=== PATIENT | male | born 1990 ===

== ENCOUNTER 2017-04-12 09:18 | Emergency (ER) | payer OTHER ==
--- NOTE | 2017-04-12 09:51 | UC ---
Abdominal Pain Male HPI - HPI Summary HPI Summary: Patient presents with an unremarkable past medical history. He presents today with 2 day onset complaints of left sided abdominal pain, that has been intermittent, and is worse with movement, and improves at rest. He states the symptoms began after he ate alot of food with friends over Hol. He describes the pain as sharp and non-radiating. He denies fever, chills, flank pain, hematuria, dysuria, or any penile discharge, testicular pain, or trauma, or bleeding. He states he is eating and drinking unchanged from baseline. - History of Current Complaint Chief Complaint: UCAbdominalPain Stated Complaint: STOMACH PAINS Time Seen by Provider: 04/12/17 09:22 Hx Obtained From: Patient Onset/Duration: Sudden Onset, Lasting Days Timing: Intermittent Episodes Lasting: Severity Initially: Moderate Severity Currently: Moderate Location: Discrete At: LLQ, Other - left lateral abdomen Character: Sharp Aggravating Factor(s): Movement Alleviating Factor(s): Rest Associated Signs And Symptoms: Positive: Negative - Risk Factors Testicular Torsion: Negative Cardiac Risk Factors: Negative - Allergies/Home Medications Allergies/Adverse Reactions: Allergies Allergy/AdvReac Type Severity Reaction Status Date / Time No Known Allergies Allergy Verified 04/12/17 09:27 Home Medications: Home Medications Acetaminophen [Acetaminophen Extra Stren] 1 tab PO Q8HR PRN 04/12/17 [History Confirmed 04/12/17] Bismuth Subsalicylate [Pepto Bismol] 1 tab PO BID PRN 04/12/17 [History Confirmed 04/12/17] PMH/Surg Hx/FS Hx/Imm Hx Previously Healthy: Yes - Surgical History Surgical History: None - Family History Known Family History: Positive: None - Social History Occupation: Student Lives: Alone Alcohol Use: Occasionally Substance Use Type: None Smoking Status (MU): Never Smoked Tobacco - Immunization History Most Recent Influenza Vaccination: 01/2017 Review of Systems Constitutional: Negative Skin: Negative Eyes: Negative ENT: Negative Respiratory: Negative Cardiovascular: Negative Gastrointestinal: Abdominal Pain Genitourinary: Negative Motor: Negative Neurovascular: Negative Musculoskeletal: Negative Neurological: Negative Psychological: Negative Is Patient Immunocompromised?: No All Other Systems Reviewed And Are Negative: Yes Physical Exam Triage Information Reviewed: Yes Appearance: Well-Appearing Vital Signs: Initial Vital Signs Temp 97.6 F 04/12/17 09:21 Pulse 117 04/12/17 09:21 Resp 16 04/12/17 09:21 BP 165/73 04/12/17 09:21 Pulse Ox 99 04/12/17 09:21 Vital Signs Reviewed: Yes Eye Exam: Normal ENT Exam: Normal ENT: Positive: Normal ENT inspection, Hearing grossly normal, Pharynx normal Neck exam: Normal Neck: Positive: Supple Respiratory: Positive: Lungs clear, Normal breath sounds, No respiratory distress Cardiovascular: Positive: RRR, No Murmur, Pulses Normal Abdominal Exam: Normal Skin Exam: Normal Abd Pain Male Course/Dx - Course Course Of Treatment: Patient prresent with an unremarkabel past medical history who presents today with 2 day onset left sided intermittent abdomen pain, and is worse with movement and resolves at rest, and could not be reproduced today on exam. He declines any testicular pain, trauma, penile discharge, or hematura , and I do not suspect any testicular torson based on the patient history. UA wa normal, and CT abdomen and pelvis was obtained and read by the radiologits and reviewed with the patient as inflammatory changes noted left upper quadrant in the mesentery with thickening of the lateral conal fascia. Differential diagnosis included pancreatitis, focal dicerticultis, or omental infarct. Clinical correlation is suggested. I then recommend that the patient go to the ER for further evaluation as I could not obtain any blood work in a timely manner here and he decided to drive self to ER and declined ambulance transport. I called the ER and gave report to Dr. Sultana who acknoweldges the patient is coming. At the time of discharge the patient had a nontoxic appearance, with VS recorded as BP 165/73, T-97.6, P-117, R-16, O2sat 99% on RA , noted to be abnormal due to current illness. He was discharge per his request to drive self immedicatly to the ER. - Differential Dx/Clinical Impression Differential Diagnosis/HQI/PQRI: Diverticulitis, Ischemic Bowel, Pancreatitis Provider Diagnoses: abdominal pain. DDX;diveritcultis. pancreatitis. ischemic bowel Discharge - Discharge Plan Condition: Stable Disposition: OTHER Discharge Disposition Comment: go immediatly to the ER Patient Education Materials: Acute Abdominal Pain (ED) Referrals: No Primary Care Phys,NOPCP [Primary Care Provider] - Additional Instructions: Patient declined ambulance transport to ED, he was told to go directly to the ER.
--- NOTE | 2017-04-12 10:38 | RAD ---
Indication: Left-sided flank pain. CT of the abdomen and pelvis was performed without oral or IV contrast administration. Coronal and sagittal reconstructed images were obtained. Coronal and sagittal reconstructed images were obtained. The lung bases demonstrate no pleural fluid, nodules or masses. Heart is of normal size without evidence of pericardial effusion. Liver is normal in size. It is diffusely decreased in density consistent with hepatic steatosis. Gallbladder demonstrates no calcified gallstones. No pericholecystic fluid or wall thickening is identified. The pancreas demonstrates no mass or pancreatic duct dilatation. The spleen is normal in size. No adrenal masses are noted. The kidneys demonstrates no evidence of hydronephrosis around either kidney. There is increased edema in the left mesentery inferior to the spleen. This is consistent with an inflammatory change. I cannot tell whether this is related to the pancreas or colon. Possibility of omental infarct should also be considered. There is thickening of the lateral conal fossa. The spleen is normal in size. No retroperitoneal lymphadenopathy is noted. The aorta and inferior vena cava are unremarkable. CT of the pelvis demonstrates diverticulosis without definite evidence of diverticulitis. Urinary bladder is unremarkable. No free fluid is noted in the pelvis. Small inguinal lymph nodes are noted. IMPRESSION: Inflammatory changes noted left upper quadrant in the mesentery with thickening of the lateral conal fascia. Differential diagnosis includes pancreatitis, focal diverticulitis or omental infarct. Clinical correlation is suggested.
== END 2017-04-12 11:05 ==
LOC: UCEAST 09:18
DX: R10.32 Left lower quadrant pain (principal)
CPT/HCPCS: 74176; 81003; 99202; G0463

== ENCOUNTER 2017-04-12 11:39 | Emergency (ER) | payer OTHER ==
[2017-04-12] MEDS ORDERED: NS 0.9% 1000 ML* 1,000 ML IV ONE (12:34)
--- NOTE | 2017-04-12 13:03 | ED ---
Abdominal Pain/Male - HPI Summary HPI Summary: Patient is an otherwise healthy 27yo M who presents to the ED from with CC of LUQ/LLQ pain which began 2 days ago. He notes to eating a large meal with friends on Sunday and felt uncomfortable after. Sunday, he notes to onset of pain which is stabbing and aching in nature, is intermittent, not worse or better after eating. Denies N/V/C/D. Denies fevers, sweats or chills. Pain has improved since yesterday and he is asymptomatic on arrival. Taken Tylenol with relief of pain yesterday. Denies any testicular pain or excessive alcohol use. Denies history of colitis or diverticulitis. Denies melena. Denies any urinary symptoms. Denies any introduction of new food to the diet. Denies flank pain. No history of abdominal surgeries. Partner at bedside. Patient declines excessive treatment, and would only like labs obtained while in the ED. - History of Current Complaint Chief Complaint: EDAbdPain Stated Complaint: ABD PAIN Time Seen by Provider: 04/12/17 12:25 Hx Obtained From: Patient Onset/Duration: Gradual Onset Timing: Constant Severity Initially: Moderate Severity Currently: Moderate Pain Intensity: 3 Pain Scale Used: 0-10 Numeric Location: Discrete At: LUQ, Discrete At: LLQ Radiates: No Character: Cramping Aggravating Factor(s): Nothing Alleviating Factor(s): Nothing Associated Signs And Symptoms: Positive: Negative - Risk Factors Testicular Torsion: Negative Cardiac Risk Factors: Negative - Allergies/Home Medications Allergies/Adverse Reactions: Allergies Allergy/AdvReac Type Severity Reaction Status Date / Time No Known Allergies Allergy Verified 04/12/17 09:27 PMH/Surg Hx/FS Hx/Imm Hx Previously Healthy: Yes - Immunization History Hx Pertussis Vaccination: No Immunizations Up to Date: Unable to Obtain/Confirm Infectious Disease History: No Infectious Disease History: Reports: Traveled Outside the [place] in Last 30 Days - [place] - Family History Known Family History: Positive: None - Social History Occupation: Employed Full-time Lives: With Family Alcohol Use: Occasionally Hx Substance Use: No Substance Use Type: Reports: None Hx Tobacco Use: No Smoking Status (MU): Never Smoked Tobacco Do You Chew or Dip Tobacco: No Review of Systems Constitutional: Negative Negative: Fever, Chills, Fatigue Eyes: Negative Cardiovascular: Negative Genitourinary: Negative Positive: no symptoms reported, see HPI Musculoskeletal: Negative Skin: Negative Psychological: Normal All Other Systems Reviewed And Are Negative: Yes Physical Exam Triage Information Reviewed: Yes Vital Signs On Initial Exam: Initial Vitals Temp Pulse Resp BP Pulse Ox 98.5 F 103 20 165/88 99 04/12/17 11:40 04/12/17 11:40 04/12/17 11:40 04/12/17 11:40 04/12/17 11:40 Vital Signs Reviewed: Yes Appearance: Positive: Well-Appearing, Well-Nourished Skin: Positive: Warm, Skin Color Reflects Adequate Perfusion Head/Face: Positive: Normal Head/Face Inspection Eyes: Positive: EOMI, DARCIE, Conjunctiva Clear Neck: Positive: Supple, Nontender, No Lymphadenopathy Respiratory/Lung Sounds: Positive: Clear to Auscultation, Breath Sounds Present Cardiovascular: Positive: Normal, RRR, Pulses are Symmetrical in both Upper and Lower Extremities Abdomen Description: Positive: Other: - no tenderness to the LLQ or LUQ on deep palpation Bowel Sounds: Positive: Present Musculoskeletal: Positive: Normal, Strength/ROM Intact Neurological: Positive: Sensory/Motor Intact, Alert, Oriented to Person Place, Time, Speech Normal Psychiatric: Positive: Normal, Affect/Mood Appropriate Diagnostics - Vital Signs Vital Signs Temp Pulse Resp BP Pulse Ox 04/12/17 11:40 98.5 F 103 20 165/88 99 - Laboratory Result Diagrams: 04/12/17 13:22 04/12/17 13:22 Lab Statement: Any lab studies that have been ordered have been reviewed, and results considered in the medical decision making process. Abdominal Pain Fem Course/Dx - Course Course Of Treatment: Patient is asymptomatic on arrival. While at , Abd/ pelvis completed with a result of: IMPRESSION: Inflammatory changes noted left upper quadrant in the mesentery with. thickening of the lateral conal fascia. Differential diagnosis includes pancreatitis,. focal diverticulitis or omental infarct. Clinical correlation is suggested. Patient sent here from for labs to be obtained. Without diahrrea or constipation, this is likely not an infectious colitis, but rather an inflammatory condition of the bowels caused from excessive food intake. He denies symptoms currently. Eating and drinking OK. Denies satiety. Treatment options explained to patient. Patient understands the plan, voices no concerns at this time and understands the return precatuions given to them if any symptoms become worse. They are OK for discharge at this time. VS stable on discharge. He will return to the ED in 3- 4 days if symptoms continue. - Diagnoses Differential Diagnosis/HQI/PQRI: Appendicitis, Urinary Tract Infection Provider Diagnoses: Colitis Discharge - Discharge Plan Condition: Stable Disposition: HOME Patient Education Materials: Colitis (ED) Referrals: No Primary Care Phys,NOPCP [Primary Care Provider] - Additional Instructions: I believe you have colitis. This is an inflammation of the colon. I have given you information. You do not have diarrhea or constipation or vomiting, so I do not believe this is a bacterial infection. Please take Maalox for any symptoms. Tylenol may also help with the pain Eat small amounts of food at a time If any symptoms worsen, return to the ED immediately
[2017-04-12 13:50] LABS: ABS Basophils 0 10^3/ul (0-0.2); ABS Eosinophils 0.1 10^3/ul (0-0.6); ABS Lymphocytes 1.9 10^3/ul (1.0-4.8); ABS Monocytes 0.8 10^3/ul (0-0.8); ABS Nucleated RBC 0.01 10^3/ul; Eosinophil % 1.3 % (0-6); Hematocrit 44 % (42-52); Hemoglobin 14.9 g/dl (14.0-18.0); Mean Corpuscular HGB Conc 34 g/dl (31-36); Mean Corpuscular Hemoglobin 28 pg (27-31); Mean Corpuscular Volume 83 fL (80-94); Mean Platelet Volume 9 um3 (7.4-10.4); Nucleated Red Blood Cells % 0.1; Platelet Count 243 10^3/ul (150-450); Red Blood Count 5.27 10^6/ul (4.0-5.4); Red Cell Distribution Width 13 % (10.5-15); White Blood Count 9.8 10^3/ul (3.5-10.8)
[2017-04-12 14:03] LABS: INR 1.02 (0.77-1.02)
[2017-04-12 14:04] LABS: EGFR Non-African American 112.7 (>60)
== END 2017-04-12 14:35 | disposition home or self-care (01) ==
LOC: ED 11:39
DX: K52.9 Noninfective gastroenteritis and colitis, unspecified (principal); R10.84 Generalized abdominal pain
CPT/HCPCS: 36415; 80053; 83605; 83690; 85025; 85610; 85652; 86140; 99282